=== PATIENT | male | born 1960 | race Caucasian/White ===

== ENCOUNTER 2019-12-18 20:00 | Outpatient (CLI) | payer OTHER, SELFPAY | END 2019-12-18 20:01 | disposition home or self-care (01) | LOC: SLEEP 12-19 12:06 | PROVIDERS: Family Provider Family Medicine; PCP Family Medicine; Visit Provider Family Medicine | DX: G47.30 Sleep apnea, unspecified (principal) | CPT/HCPCS: 95810; 95811 ==

== ENCOUNTER 2020-02-07 20:00 | Outpatient (CLI) | payer OTHER, SELFPAY | END 2020-02-07 20:01 | disposition home or self-care (01) | LOC: SLEEP 02-08 10:08 | PROVIDERS: Family Provider Family Medicine; PCP Family Medicine; Visit Provider Family Medicine | DX: G47.33 Obstructive sleep apnea (adult) (pediatric) (principal) | CPT/HCPCS: 95810; 95811 ==

== ENCOUNTER → 2020-04-15 10:27 | Outpatient (BNVA) | payer OTHER, SELFPAY | PROVIDERS: Family Provider Family Medicine; PCP Family Medicine; Visit Provider Family Medicine | DX: I10 Essential (primary) hypertension (principal); G89.29 Other chronic pain; M54.5 Low back pain; R35.1 Nocturia | CPT/HCPCS: 80053; 80061; 84153; 85025 ==

== ENCOUNTER → 2020-04-16 08:15 | Outpatient (BNVA) | payer OTHER, SELFPAY | PROVIDERS: Family Provider Family Medicine; PCP Family Medicine; Visit Provider Family Medicine | DX: G89.29 Other chronic pain (principal); M54.5 Low back pain; I10 Essential (primary) hypertension | CPT/HCPCS: 80307; 80373; 82044 ==

== ENCOUNTER → 2020-06-03 08:12 | Outpatient (BNVA) | payer OTHER, SELFPAY | PROVIDERS: Family Provider Family Medicine; PCP Family Medicine; Visit Provider Family Medicine | DX: E78.5 Hyperlipidemia, unspecified (principal) | CPT/HCPCS: 80053 ==

== ENCOUNTER → 2020-07-19 09:28 | Outpatient (BNVA) | payer OTHER, SELFPAY | PROVIDERS: Family Provider Family Medicine; PCP Family Medicine; Referring Provider Family Medicine; Visit Provider Anesthesiology Pain Medicine | DX: G89.29 Other chronic pain (principal); M54.42 Lumbago with sciatica, left side; M47.816 Spondylosis without myelopathy or radiculopathy, lumbar region; M54.16 Radiculopathy, lumbar region; M96.1 Postlaminectomy syndrome, not elsewhere classified; Z98.890 Other specified postprocedural states; Z79.891 Long term (current) use of opiate analgesic | CPT/HCPCS: 99204 ==

== ENCOUNTER → 2020-07-24 13:48 | Outpatient (BNVA) | payer OTHER, SELFPAY | PROVIDERS: Family Provider Family Medicine; PCP Family Medicine; Visit Provider Anesthesiology Pain Medicine | DX: G89.29 Other chronic pain (principal); M54.42 Lumbago with sciatica, left side; M54.16 Radiculopathy, lumbar region; M54.9 Dorsalgia, unspecified; Z79.891 Long term (current) use of opiate analgesic | CPT/HCPCS: 64483; 64484; J1040; J3490 ==

== ENCOUNTER → 2020-08-07 12:36 | Outpatient (BNVA) | payer OTHER, SELFPAY | PROVIDERS: Family Provider Family Medicine; PCP Family Medicine; Visit Provider Anesthesiology Pain Medicine | DX: G89.29 Other chronic pain (principal); M51.17 Intervertebral disc disorders with radiculopathy, lumbosacral region; M47.816 Spondylosis without myelopathy or radiculopathy, lumbar region; M54.9 Dorsalgia, unspecified; M96.1 Postlaminectomy syndrome, not elsewhere classified; Z98.890 Other specified postprocedural states | CPT/HCPCS: 64483; 64484; 99212; J1040; J3490 ==

== ENCOUNTER → 2020-08-26 09:52 | Outpatient (BNVA) | payer OTHER, SELFPAY | PROVIDERS: Family Provider Family Medicine; PCP Family Medicine; Visit Provider Anesthesiology Pain Medicine | DX: G89.29 Other chronic pain (principal); M47.816 Spondylosis without myelopathy or radiculopathy, lumbar region; M51.17 Intervertebral disc disorders with radiculopathy, lumbosacral region; M96.1 Postlaminectomy syndrome, not elsewhere classified; Z98.890 Other specified postprocedural states; Z79.891 Long term (current) use of opiate analgesic | CPT/HCPCS: 99213; 99214 ==

== ENCOUNTER → 2020-09-19 11:16 | Outpatient (BNVA) | payer OTHER, SELFPAY | PROVIDERS: Family Provider Family Medicine; PCP Family Medicine; Visit Provider Anesthesiology Pain Medicine | DX: G89.29 Other chronic pain (principal); M51.17 Intervertebral disc disorders with radiculopathy, lumbosacral region; M47.816 Spondylosis without myelopathy or radiculopathy, lumbar region; M96.1 Postlaminectomy syndrome, not elsewhere classified; Z98.890 Other specified postprocedural states; Z79.891 Long term (current) use of opiate analgesic | CPT/HCPCS: 99213 ==

== ENCOUNTER → 2020-11-25 09:06 | Outpatient (BNVA) | payer OTHER, SELFPAY | PROVIDERS: Family Provider Family Medicine; PCP Family Medicine; Visit Provider Anesthesiology Pain Medicine | DX: G89.29 Other chronic pain (principal); M43.12 Spondylolisthesis, cervical region; M51.17 Intervertebral disc disorders with radiculopathy, lumbosacral region; M47.816 Spondylosis without myelopathy or radiculopathy, lumbar region; M96.1 Postlaminectomy syndrome, not elsewhere classified; Z98.890 Other specified postprocedural states | CPT/HCPCS: 99214; 99215 ==

== ENCOUNTER → 2020-12-04 13:07 | Outpatient (BNVA) | payer OTHER, SELFPAY | PROVIDERS: Family Provider Family Medicine; PCP Family Medicine; Visit Provider Anesthesiology Pain Medicine | DX: G89.29 Other chronic pain (principal); M54.12 Radiculopathy, cervical region; Z79.891 Long term (current) use of opiate analgesic | CPT/HCPCS: 62321; J1100 ==

== ENCOUNTER → 2020-12-12 09:56 | Outpatient (BNVA) | payer OTHER, SELFPAY | PROVIDERS: Family Provider Family Medicine; PCP Family Medicine; Visit Provider Anesthesiology Pain Medicine | DX: G89.29 Other chronic pain (principal); M54.42 Lumbago with sciatica, left side; M47.816 Spondylosis without myelopathy or radiculopathy, lumbar region; M54.16 Radiculopathy, lumbar region; M96.1 Postlaminectomy syndrome, not elsewhere classified; M54.12 Radiculopathy, cervical region; Z79.899 Other long term (current) drug therapy; Z98.890 Other specified postprocedural states | CPT/HCPCS: 99214 ==

== ENCOUNTER → 2020-12-26 15:03 | Outpatient (BNVA) | payer OTHER, SELFPAY | PROVIDERS: Family Provider Family Medicine; PCP Family Medicine; Visit Provider Family Medicine | DX: I10 Essential (primary) hypertension (principal); R35.1 Nocturia | CPT/HCPCS: 81015 ==

== ENCOUNTER → 2020-12-30 07:07 | Outpatient (BNVA) | payer OTHER, SELFPAY | PROVIDERS: Family Provider Family Medicine; PCP Family Medicine; Visit Provider Family Medicine | DX: I10 Essential (primary) hypertension (principal); R35.1 Nocturia; R73.09 Other abnormal glucose | CPT/HCPCS: 80053; 80061; 82043; 84153; 85025 ==

== ENCOUNTER → 2020-12-31 12:52 | Outpatient (BNVA) | payer OTHER, SELFPAY | PROVIDERS: Family Provider Family Medicine; PCP Family Medicine; Visit Provider Family Medicine | DX: R73.09 Other abnormal glucose (principal) | CPT/HCPCS: 83036 ==

== ENCOUNTER 2021-01-14 10:14 | Emergency (ER) | payer OTHER, SELFPAY ==
--- NOTE | 2021-01-14 10:45 | W.ED.FALL ---
HPI - Fall General: Chief Complaint: Extremity Injury, Lower Stated Complaint: fell/Lt Leg pain Time Seen by Provider: 01/14/21 10:15 Source: patient Mode of arrival: wheelchair Limitations: no limitations History of Present Illness: HPI Narrative: Patient is a 60-year-old male who presents to ED today for evaluation of a left lower leg injury that he sustained yesterday after slipping and falling on ice. Patient states when he fell his lower leg got twisted underneath him. Patient tells me he has had trouble with ambulation since the fall secondary to pain. He denies any other injury sustained. Denies striking his head, LOC, neck or back pain (apart from his chronic back pain). History of bilateral TKA performed in 2010 and 2011 in [place]. complaint: fall Onset (ago): day(s) (yesterday) Fall from: standing Fall witnessed: yes, by family Place fall occurred: home Loss of consciousness: None Prolonged down time: no Symptoms prior to fall: none Context: tripped/slipped Location of injury - extremities: Left: knee, lower leg and ankle Associated symptoms-after fall: Reports no associated symptoms; Denies chest pain or neck pain Review of Systems Const: Denies: fever(s) Eyes: Denies: change in vision or blurry vision Card: Denies: chest pain Resp: Denies: dyspnea GI: Denies: nausea or vomiting Musc: Reports: back pain (chronic; at baseline currently), extremity pain (L LE) and joint pain (L knee, L ankle); Denies: neck pain or extremity swelling Neuro: Reports: numbness in extremities (chronic L LE numbness following TKA); Denies: lack of coordination, frequent falls or dizziness PFS ED PFSH: Medical History (Updated 01/14/21 @ 12:20 by ESPERANZA Vera) Chronic hoarseness Essential hypertension GERD (gastroesophageal reflux disease) retirement (current) use of opiate analgesic Pain management contract signed Sleep apnea Surgical History H/O total knee replacement History of lumbar laminectomy History of shoulder surgery Family History Other Cancer Social History Smoking and tobacco status: never smoked Alcohol intake: never Caregiver/support person: Yes Lives independently: Yes History of recent travel: No Physical Exam Const: COMMON NORMALS: no acute distress, patient oriented x3, no limitations and alert GENERAL APPEARANCE: cooperative NUTRITIONAL APPEARANCE: obese morbidly obese ORIENTATION/CONSCIOUSNESS: Yes awake, Yes oriented to person, Yes oriented to place and Yes oriented to time HENMT: COMMON NORMALS: normocephalic and atraumatic HEAD & SCALP: normal to inspection, normocephalic and atraumatic Neck/C-Spine: COMMON NORMALS: full ROM CERVICAL SPINE: Yes cervical ROM normal, No pain with cervical ROM, No Cervical spine tenderness and No Paracervical muscle tenderness Resp: COMMON NORMALS: normal respiratory effort Extremity: COMMON NORMALS: capillary refill normal and no calf tenderness GENERAL: Yes normal exam except as noted OTHER: chronic bilateral pitting edema; TTP L lateral knee/lateral tib; no obvious swelling, ecchymosis, or bony deformities noted; DP/PT pulses normal; cap refill normal Neuro: CHADD COMA SCALE: document GCS findings [place] coma scale eye opening: Spontaneous Chadd coma scale verbal response: Orientated Chadd coma scale motor response: Obey commands [place] coma scale total score: 15 COMMON NORMALS: patient oriented x3, moves all extremities, no focal motor deficits and no sensory deficits noted SENSORIUM/ORIENTATION: Yes alert, Yes oriented to person, Yes oriented to place and Yes oriented to time GAIT: Yes Unable to assess gait Skin: COMMON NORMALS: no rashes or lesions noted GENERAL SKIN EXAM: no rashes or lesions noted Course Consultations: Consultation #1: Dr. Harris-recommends crutches/non-weight bearing and he will see in office. Vital Signs: Vital signs: Vital Signs Temperature 99.6 F 01/14/21 10:48 Pulse Rate 79 01/14/21 12:59 Respiratory Rate 17 01/14/21 12:59 Blood Pressure 167/91 01/14/21 12:59 Pulse Oximetry 95 01/14/21 12:59 MDM - Fall MDM Narrative: Medical decision making narrative: Patient was given crutches and he will follow-up with Dr. Harris. Patient states he normally takes Tramadol for his chronic back pain. He states he had a prescription for pickup but was not able to pick it up due to inclement weather and states the prescription is now . He has contacted pain management however, again, due to inclement weather he has not been able to get a hold of them. I will write him for a prescription for 20 tabs so he will have something for pain for his back and his new acute tibial plateau fracture. Recommend he continue to try to call pain management so they are aware. Imaging Data^: XR L ankle: Radiologist's impression: [facility] [address] [place] [address]. [place] [address] XRay Report Signed Patient: Tae Lucas Unit #: [id number] : 1960 Age/Sex: 60 / M ADM Date: 01/14/21 Loc: ER Room/Bed: Attending Dr: Ordering Provider/Ordering MD: Verna Scruggs Date of Service: 01/14/21 Procedure(s): XR ankle LT min 3V* 50139 Accession Number(s): [id number] Report Number: [id number] WS: [id number] LEFT ANKLE: 3 VIEW(S) TECHNIQUE: AP, oblique(s) and lateral. HISTORY: fall/pain COMPARISON: None available. Normal anatomic alignment with no fracture or dislocation. Moderate narrowing of the joint space. No acute fracture. Mild diffuse soft tissue edema. XR/XR ankle LT min 3V* [id number] IMPRESSION: No acute fracture. Dictated By: Sanjuanita Wolfe DO Signed By: Sanjuanita Wolfe DO Signed Date/Time: 01/14/217 DD/ 1117 XR L knee: Radiologist's impression: [facility] [address] [place] [address]. [place] [address] XRay Report Signed with Addenda Patient: Tae Lucas Unit #: [id number] : 1960 Age/Sex: 60 / M ADM Date: 01/14/21 Loc: ER Room/Bed: Attending Dr: Ordering Provider/Ordering MD: Verna Scruggs Date of Service: 01/14/21 Procedure(s): XR knee LT 3V* 45150 Accession Number(s): [id number] Report Number: [id number] ADDENDUM WS: [id number] Addendum LEFT knee radiographs. There is a nondisplaced vertical fracture involving the lateral tibial plateau with extension to the metaphysis. This is also seen on the tibia radiographs. Addendum Dictated By: Sanjuanita Wolfe DO Addendum Signed By: Sanjuanita Wolfe DO Signed Date/Time: 01/14/21 1 120 Addendum Cosigned By: ADDENDUM XR/XR knee LT 3V* [id number] IMPRESSION: Nondisplaced vertical fracture lateral tibial plateau. Addendum Dictated By: Sanjuanita Wolfe DO Addendum Signed By: Sanjuanita Wolfe DO Signed Date/Time: 01/14/21 1 124 Addendum Cosigned By: WS: [id number] LEFT KNEE: 3 VIEW(S) TECHNIQUE: AP, oblique(s) and lateral. HISTORY: fall/pain COMPARISON: None available. No fracture or dislocation. Status post total knee arthroplasty. There is a lucent area measuring 2.5 x 1.2 cm the knee just deep to the medial tibial plateau prosthesis. Marked hypertrophic bone formation along the lateral joint line. Moderate-sized suprapatellar joint effusion. XR/XR knee LT 3V* [id number] IMPRESSION: 1. No fracture identified. 2. Prior total knee arthroplasty. No prior studies to evaluate for comparison or stability. There may be an area of loosening along the medial tibial compartment. 3. Large suprapatellar joint effusion. Dictated By: Sanjuanita Wolfe DO Signed By: Sanjuanita Wolfe DO Signed Date/Time: 01/14/21 1117 DD/ 1115 XR L tib/fib: Radiologist's impression: [facility] [address] [facility] [place] [address] XRay Report Signed Patient: Tae Lucas Unit #: [id number] : 1960 Age/Sex: 60 / M ADM Date: 01/14/21 Loc: ER Room/Bed: Attending Dr: Ordering Provider/Ordering MD: Verna Scruggs Date of Service: 01/14/21 Procedure(s): XR tibia fibula LT 2V 29229 Accession Number(s): [id number] Report Number: [id number] WS: [id number] LEFT TIBIA-FIBULA 2 VIEWS HISTORY: fall/pain COMPARISON: None available. No acute fracture. Degenerative changes and hypertrophic bone formation at the knee. LEFT knee arthroplasty. Soft tissue edema surrounding the tibia and fibula and at the knee. Note: I will review the knee radiograph and due to an addendum. XR/XR tibia fibula LT 2V 95809 IMPRESSION: Soft tissue edema. Suspicious for fracture involving the lateral tibial plateau. Dictated By: Sanjuanita Wolef DO Signed By: Sanjuanita Wolfe DO Signed Date/Time: 01/14/21 111 DD/ 1118 Discharge Plan Discharge Patient Disposition: Home Clinical Impression: Closed fracture of lateral portion of left tibial plateau Qualifiers: Encounter type: initial encounter Qualified Code(s): S82.122A - Displaced fracture of lateral condyle of left tibia, initial encounter for closed fracture Condition: Stable Prescriptions: New tramadol 100 mg tablet 100 mg PO Q8H PRN (Reason: pain) Qty: 20 RF: 0 No Action amlodipine 10 mg tablet 10 mg PO DAILY Qty: 90 RF: 1 carvedilol 6.25 mg tablet 6.25 mg PO BID Qty: 180 RF: 1 tramadol 50 mg tablet 100 mg PO BID PRN (Reason: pain) 30 Days Qty: 120 RF: 3 gabapentin 600 mg tablet 600 mg PO TID Qty: 90 RF: 0 (DME) AVAPS-AE Qty: 1 RF: 0 hydrochlorothiazide 50 mg tablet 50 mg PO DAILY RF: 0 losartan 100 mg tablet 100 mg PO DAILY RF: 0 Discharge Orders: Discharge ED (Routine); Ordered 01/14/21 Ordered By: Verna Scruggs Referrals: Randee Stoner DO [Primary Care Provider] - Rogelio Harris MD [Physician] - Patient Instructions: Opioid Safety Activity Restrictions/Additional Instructions: [facility] is committed to fighting the nationwide opiate epidemic. We are providing ALL patients with information regarding opiate safety. If you received opiate pain medication during your stay or if you received a prescription for opiate pain medication-please review this handout. If not, you may disregard. Thank you. No weightbearing until told otherwise by Dr. Harris. Case management should contact you shortly to set you up with this appointment. Please contact your pain management provider as soon as possible-please inform them that you were given a prescription for Tramadol from the emergency department. Coding Level of Care Code ED Ore Dryer for Chg Fwd Exam Detailed
[2021-01-14 10:48] VITALS: BP 113/94; PULSE 79; RESP 16; TEMP 37.6; O2SAT 98; BMI 47.5
--- NOTE | 2021-01-14 10:49 | XR_ITS ---
WS: [id number] LEFT KNEE: 3 VIEW(S) TECHNIQUE: AP, oblique(s) and lateral. HISTORY: fall/pain COMPARISON: None available. No fracture or dislocation. Status post total knee arthroplasty. There is a lucent area measuring 2.5 x 1.2 cm the knee just deep to the medial tibial plateau prosthesis. Marked hypertrophic bone formation along the lateral joint line. Moderate-sized suprapatellar joint effusion. XR/XR knee LT 3V* [id number] IMPRESSION: 1. No fracture identified. 2. Prior total knee arthroplasty. No prior studies to evaluate for comparison or stability. There may be an area of loosening along the medial tibial compart ment. 3. Large suprapatellar joint effusion.
--- NOTE | 2021-01-14 10:49 | XR_ITS ---
WS: [id number] LEFT ANKLE: 3 VIEW(S) TECHNIQUE: AP, oblique(s) and lateral. HISTORY: fall/pain COMPARISON: None available. Normal anatomic alignment with no fracture or dislocation. Moderate narrowing of the joint space. No acute fracture. Mild diffuse soft tissue edema. XR/XR ankle LT min 3V* [id number] IMPRESSION: No acute fracture.
--- NOTE | 2021-01-14 10:49 | XR_ITS ---
WS: [id number] LEFT TIBIA-FIBULA 2 VIEWS HISTORY: fall/pain COMPARISON: None available. No acute fracture. Degenerative changes and hypertrophic bone formation at the knee. LEFT knee arthroplasty. Soft tissue edema surrounding the tibia and fibula and at the knee. Note: I will review the knee radiograph and due to an addendum. XR/XR tibia fibula LT 2V 85411 IMPRESSION: Soft tissue edema. Suspicious for fracture involving the lateral tibial plateau .
[2021-01-14 10:51] VITALS: BP 113/94; PULSE 79; RESP 18; O2SAT 94
[2021-01-14 12:59] VITALS: BP 167/91; PULSE 79; RESP 17; O2SAT 95
--- NOTE | 2021-01-15 09:23 | DCPLANNER ---
manager of software received message to schedule follow up appointment with Dr. Harris. manager of software called and spoke to Rakel, who took patient's information and stated she will be calling patient to see if patient can come in to see Dr. Harris today.
--- NOTE | 2021-01-15 14:10 | DCPLANNER ---
Patient has a follow up appointment scheduled for Thursday, January 21, 2021 at 9:[address] Harris at [facility]. Clinic will call patient with appointment information.
--- NOTE | 2021-02-03 07:56 | DCPLANNER ---
Patient had a follow up appointment scheduled for 01.21.[address] Harris at [facility] - patient did attend appointment.
== END 2021-01-14 13:00 | disposition home or self-care (01) ==
PROVIDERS: Emergency Provider Physician Assistant; PCP Family Medicine
DX: S82.122A Displaced fracture of lateral condyle of left tibia, initial encounter for closed fracture (principal); I10 Essential (primary) hypertension; W00.0XXA Fall on same level due to ice and snow, initial encounter
CPT/HCPCS: 29530; 73562; 73590; 73610; 99283; E0114

== ENCOUNTER → 2021-01-21 10:03 | Outpatient (BNVA) | payer OTHER, SELFPAY | PROVIDERS: PCP Family Medicine; Visit Provider Anesthesiology Pain Medicine | DX: G89.29 Other chronic pain (principal); M51.17 Intervertebral disc disorders with radiculopathy, lumbosacral region; M96.1 Postlaminectomy syndrome, not elsewhere classified; M47.816 Spondylosis without myelopathy or radiculopathy, lumbar region; Z79.899 Other long term (current) drug therapy; Z98.890 Other specified postprocedural states; Z79.891 Long term (current) use of opiate analgesic | CPT/HCPCS: 99214 ==

== ENCOUNTER → 2021-02-06 08:47 | Outpatient (BNVA) | payer OTHER, SELFPAY | PROVIDERS: PCP Family Medicine; Visit Provider Anesthesiology Pain Medicine | DX: G89.29 Other chronic pain (principal); M96.1 Postlaminectomy syndrome, not elsewhere classified; M54.42 Lumbago with sciatica, left side; M47.816 Spondylosis without myelopathy or radiculopathy, lumbar region; M54.16 Radiculopathy, lumbar region; M54.12 Radiculopathy, cervical region; S82.142A Displaced bicondylar fracture of left tibia, initial encounter for closed fracture; X58.XXXA Exposure to other specified factors, initial encounter; Z79.899 Other long term (current) drug therapy; Z98.890 Other specified postprocedural states; Z79.891 Long term (current) use of opiate analgesic | CPT/HCPCS: 99214 ==

== ENCOUNTER 2021-02-25 11:58 | Outpatient (CLI) | payer OTHER, SELFPAY ==
--- NOTE | 2021-02-25 12:58 | ECG_ITS ---
[facility] Test Date: 2021-02-25 Pat Name: Tae Lucas Department: Room: Gender: Male Heel Breaster: : 1960 Requested By: Reggie Goddard Order Number: [id number] Joaquín MD: NEHEMIAH CHANDLER Measurements Intervals [place]in Rate: 65 P: 38 VA: 233 QRS: 4 QRSD: 110 T: 38 QT: 403 QTc: 419 Interpretive Statements SINUS RHYTHM WITH FIRST DEGREE AV BLOCK Compared to ECG 06/23/2019 16:40:30 First degree AV block now present Intraventricular conduction delay no longer present Electronically Signed On 02-25-2021 20:18:31 CDT by NEHEMIAH CHANDLER [id number]
[2021-02-25 13:18] LABS: Basophils # 0.1 10^3/uL (0.0-0.1); Basophils % 0.8 %; Eosinophils # 0.6 10^3/uL (0.0-0.8); Eosinophils % 6.7 %; Hematocrit 43.6 % (42.0-52.0); Hemoglobin 13.9 g/dL (11.7-16.6); Lymphocytes # 3.9 10^3/uL (0.8-4.8); Mean Corpuscular HGB Conc 31.9 g/dL (30.0-36.0); Mean Corpuscular Hemoglobin 27.9 pg (28.0-34.0); Mean Corpuscular Volume 87.6 fL (80-94); Mean Platelet Volume 9.6 fL (7.4-10.4); Monocytes # 0.7 10^3/uL (0.2-0.9); Monocytes % 8.2 %; Neutrophils # 3.11 10^3/uL (1.8-7.7); Neutrophils % 37.1 %; Nucleated Red Blood Cells % 0 %; Platelet Count 292 10^3/cmm (130-400); Red Blood Count 4.98 10^6/uL (4.1-5.3); Red Cell Distribution Width 14.1 % (12.1-15.1); White Blood Count 8.4 10^3/uL (4.0-10.0)
[2021-02-25 13:32] LABS: Anion Gap 13.8 (5-19); Blood Urea Nitrogen 9 mg/dL (8-23); Calcium 9.4 mg/dL (8.5-10.5); Carbon Dioxide 27 mmol/L (22-29); Chloride 99 mmol/L (98-107); Glucose 96 mg/dL (65-115); Osmolality Calculated 281 mOsm/kg (285-295); Potassium 3.8 mmol/L (3.5-5.1); Sodium 136 mmol/L (136-145)
== END 2021-02-25 11:59 | disposition home or self-care (01) ==
PROVIDERS: PCP Family Medicine; Visit Provider Specialist
DX: K21.9 Gastro-esophageal reflux disease without esophagitis (principal); R49.0 Dysphonia
CPT/HCPCS: 80048; 85025; 93005

== ENCOUNTER → 2021-03-19 08:23 | Outpatient (BNVA) | payer OTHER, SELFPAY | PROVIDERS: PCP Family Medicine; Visit Provider Anesthesiology Pain Medicine | DX: G89.29 Other chronic pain (principal); M51.17 Intervertebral disc disorders with radiculopathy, lumbosacral region; M54.2 Cervicalgia; M96.1 Postlaminectomy syndrome, not elsewhere classified; M47.816 Spondylosis without myelopathy or radiculopathy, lumbar region; S82.142A Displaced bicondylar fracture of left tibia, initial encounter for closed fracture; X58.XXXA Exposure to other specified factors, initial encounter; Z98.890 Other specified postprocedural states; Z79.891 Long term (current) use of opiate analgesic | CPT/HCPCS: 99214 ==

== ENCOUNTER → 2021-04-07 11:49 | Outpatient (BNVA) | payer OTHER, SELFPAY | PROVIDERS: PCP Family Medicine; Visit Provider Anesthesiology Pain Medicine | DX: G89.29 Other chronic pain (principal); M54.16 Radiculopathy, lumbar region; M47.816 Spondylosis without myelopathy or radiculopathy, lumbar region; M54.42 Lumbago with sciatica, left side; Z79.891 Long term (current) use of opiate analgesic | CPT/HCPCS: 64483; 64484; J1100; J3490 ==

== ENCOUNTER → 2021-05-01 09:34 | Outpatient (BNVA) | payer OTHER, SELFPAY | PROVIDERS: PCP Family Medicine Adult Medicine; Visit Provider Anesthesiology Pain Medicine | DX: G89.29 Other chronic pain (principal); M54.42 Lumbago with sciatica, left side; M54.16 Radiculopathy, lumbar region; M54.12 Radiculopathy, cervical region; M96.1 Postlaminectomy syndrome, not elsewhere classified; M79.605 Pain in left leg; Z79.891 Long term (current) use of opiate analgesic | CPT/HCPCS: 99214 ==

== ENCOUNTER → 2021-05-28 13:16 | Outpatient (BNVA) | payer OTHER, SELFPAY | PROVIDERS: PCP Family Medicine Adult Medicine; Visit Provider Anesthesiology Pain Medicine | DX: G89.29 Other chronic pain (principal); M54.16 Radiculopathy, lumbar region; M54.12 Radiculopathy, cervical region; M54.42 Lumbago with sciatica, left side; M96.1 Postlaminectomy syndrome, not elsewhere classified | CPT/HCPCS: 62323; J1040; J3490 ==

== ENCOUNTER → 2021-05-30 08:56 | Outpatient (BNVA) | payer OTHER, SELFPAY | PROVIDERS: PCP Family Medicine Adult Medicine; Visit Provider Anesthesiology Pain Medicine | DX: G89.29 Other chronic pain (principal); M54.42 Lumbago with sciatica, left side; M96.1 Postlaminectomy syndrome, not elsewhere classified; M54.16 Radiculopathy, lumbar region; M47.816 Spondylosis without myelopathy or radiculopathy, lumbar region; M54.12 Radiculopathy, cervical region; S82.142A Displaced bicondylar fracture of left tibia, initial encounter for closed fracture; X58.XXXA Exposure to other specified factors, initial encounter; Z79.891 Long term (current) use of opiate analgesic | CPT/HCPCS: 99214 ==

== ENCOUNTER → 2021-06-19 10:24 | Outpatient (BNVA) | payer OTHER, SELFPAY | PROVIDERS: PCP Family Medicine Adult Medicine; Visit Provider Anesthesiology Pain Medicine | DX: G89.29 Other chronic pain (principal); M54.42 Lumbago with sciatica, left side; M54.16 Radiculopathy, lumbar region; M96.1 Postlaminectomy syndrome, not elsewhere classified; M54.12 Radiculopathy, cervical region; S82.142A Displaced bicondylar fracture of left tibia, initial encounter for closed fracture; X58.XXXA Exposure to other specified factors, initial encounter; Z79.891 Long term (current) use of opiate analgesic | CPT/HCPCS: 99214 ==

== ENCOUNTER → 2021-08-07 09:33 | Outpatient (BNVA) | payer OTHER, SELFPAY | PROVIDERS: PCP Family Medicine Adult Medicine; Visit Provider Anesthesiology Pain Medicine | DX: G89.29 Other chronic pain (principal); M54.42 Lumbago with sciatica, left side; M54.16 Radiculopathy, lumbar region; M54.12 Radiculopathy, cervical region; S82.142A Displaced bicondylar fracture of left tibia, initial encounter for closed fracture; X58.XXXA Exposure to other specified factors, initial encounter; M96.1 Postlaminectomy syndrome, not elsewhere classified; M79.605 Pain in left leg; Z79.891 Long term (current) use of opiate analgesic | CPT/HCPCS: 99214 ==

== ENCOUNTER → 2021-08-08 08:45 | Outpatient (BNVA) | payer OTHER, SELFPAY | PROVIDERS: PCP Family Medicine Adult Medicine; Visit Provider Family Medicine Adult Medicine | DX: E66.01 Morbid (severe) obesity due to excess calories (principal); Z68.42 Body mass index [BMI] 45.0-49.9, adult; F41.8 Other specified anxiety disorders; I10 Essential (primary) hypertension; R73.03 Prediabetes; Z13.6 Encounter for screening for cardiovascular disorders | CPT/HCPCS: 80053; 83036; 84443; 85025 ==

== ENCOUNTER → 2021-09-04 09:41 | Outpatient (BNVA) | payer OTHER, SELFPAY | PROVIDERS: PCP Family Medicine Adult Medicine; Visit Provider Anesthesiology Pain Medicine | DX: G89.29 Other chronic pain (principal); M54.42 Lumbago with sciatica, left side; M54.16 Radiculopathy, lumbar region; M54.12 Radiculopathy, cervical region; S82.142A Displaced bicondylar fracture of left tibia, initial encounter for closed fracture; M96.1 Postlaminectomy syndrome, not elsewhere classified; Z79.899 Other long term (current) drug therapy; X58.XXXA Exposure to other specified factors, initial encounter; I10 Essential (primary) hypertension; M79.605 Pain in left leg; E66.01 Morbid (severe) obesity due to excess calories; Z68.42 Body mass index [BMI] 45.0-49.9, adult; Z79.891 Long term (current) use of opiate analgesic; Z77.22 Contact with and (suspected) exposure to environmental tobacco smoke (acute) (chronic) | CPT/HCPCS: 99214 ==

== ENCOUNTER → 2021-10-02 09:37 | Outpatient (BNVA) | payer OTHER, SELFPAY | PROVIDERS: PCP Family Medicine Adult Medicine; Visit Provider Anesthesiology Pain Medicine | DX: G89.29 Other chronic pain (principal); M54.16 Radiculopathy, lumbar region; M96.1 Postlaminectomy syndrome, not elsewhere classified; M54.42 Lumbago with sciatica, left side; M54.2 Cervicalgia; M54.12 Radiculopathy, cervical region; M79.605 Pain in left leg; S82.142A Displaced bicondylar fracture of left tibia, initial encounter for closed fracture; Z79.891 Long term (current) use of opiate analgesic; X58.XXXA Exposure to other specified factors, initial encounter | CPT/HCPCS: 99214 ==

== ENCOUNTER 2021-10-15 09:58 | Outpatient (CLI) | payer OTHER, SELFPAY ==
--- NOTE | 2021-10-15 10:08 | XR_ITS ---
WS: [id number] Exam: XR shoulder LT min 2V* [id number] Date/Time of Exam: 10/15/2021 10:12 AM Reason For Exam: JOINT PAIN/LIMITED ROM No fracture or dislocation noted. There is moderate DJD at the glenohumeral joint. There is arthrosis and spurring at the AC joint. Prominent subacromial spur noted. There is spurring along the medial m argin of the humeral head. Normal soft tissues. XR/XR shoulder LT min 2V* [id number] IMPRESSION: 1. Moderate degenerative changes of the shoulder. No fracture or dislocation.
--- NOTE | 2021-10-15 10:08 | XR_ITS ---
WS: [id number] Exam: XR lumbar spine 2-3V* [id number] Date/Time of Exam: 10/15/2021 10:12 AM Reason For Exam: JOINT PAIN/LIMITED ROM No acute fracture or dislocation. There is interbody fusion at C4-5 with pedicle screws and posterior rods. A disc implant is noted at L4-5. Large anterior osteophytes are noted at all levels. Prominent posterior osteophyte projects from the lower endplate of L3 and might cause some spinal canal stenos is. Facet arthropathy at all levels. Levoscoliosis. Degenerative vacuum disc at L5-S1. Degenerative n arrowing of the remaining lumbar discs. DJD of the bilateral SI joints. XR/XR lumbar spine 2-3V* [id number] IMPRESSION: 1. No acute fracture or malalignment. 2. Advanced facet arthropathy and degenerative disc changes. 3. Stable-appearing interbody fusion at L4-5. 4. Levoscoliosis. Marked spondylosis. 5. Prominent posterior osteophyte projects from the lower endplate of L3 and mi ght cause some spinal canal stenosis.
--- NOTE | 2021-10-15 10:08 | XR_ITS ---
WS: [id number] Exam: XR cervical spine 3V* [id number] Date/Time of Exam: 10/15/2021 10:12 AM Reason For Exam: JOINT PAIN/LIMITED ROM No fracture or dislocation involving the upper 6 cervical vertebra. C7 is not completely visualized o n the lateral view. There are very large anterior bridging osteophytes from C4 to C6. Facet DJD at al l levels. The odontoid is intact. Vascular calcifications in the left neck. XR/XR cervical spine 3V* [id number] IMPRESSION: 1. No fracture or malalignment noted. 2. Incomplete visualization of C7 on the lateral view. 3. Facet DJD and spondylosis. There are large anterior bridging osteophytes not ed from C4 to C 6. This causes some anterior displacement of the airway.
== END 2021-10-15 09:59 | disposition home or self-care (01) ==
PROVIDERS: PCP Family Medicine Adult Medicine; Visit Provider Dermatology
DX: Z02.71 Encounter for disability determination (principal); M25.50 Pain in unspecified joint; M47.816 Spondylosis without myelopathy or radiculopathy, lumbar region; M41.86 Other forms of scoliosis, lumbar region; M25.78 Osteophyte, vertebrae; M47.812 Spondylosis without myelopathy or radiculopathy, cervical region
CPT/HCPCS: 72040; 72100; 73030

== ENCOUNTER → 2021-11-14 07:30 | Outpatient (BNVA) | payer OTHER, SELFPAY | PROVIDERS: PCP Family Medicine Adult Medicine; Visit Provider Family Medicine Adult Medicine | DX: E11.69 Type 2 diabetes mellitus with other specified complication (principal); E66.9 Obesity, unspecified; E66.01 Morbid (severe) obesity due to excess calories; Z68.42 Body mass index [BMI] 45.0-49.9, adult; I10 Essential (primary) hypertension | CPT/HCPCS: 80053; 80061; 83036 ==

== ENCOUNTER → 2022-03-03 07:40 | Outpatient (BNVA) | payer OTHER, SELFPAY | PROVIDERS: PCP Family Medicine Adult Medicine; Visit Provider Family Medicine Adult Medicine | DX: E11.69 Type 2 diabetes mellitus with other specified complication (principal); E66.9 Obesity, unspecified; I10 Essential (primary) hypertension | CPT/HCPCS: 80053; 80061; 83036 ==

== ENCOUNTER → 2022-09-02 07:55 | Outpatient (BNVA) | payer OTHER, SELFPAY | PROVIDERS: PCP Family Medicine Adult Medicine; Visit Provider Family Medicine Adult Medicine | DX: C44.310 Basal cell carcinoma of skin of unspecified parts of face (principal); E11.69 Type 2 diabetes mellitus with other specified complication; E66.9 Obesity, unspecified; I10 Essential (primary) hypertension; F41.8 Other specified anxiety disorders; E66.01 Morbid (severe) obesity due to excess calories; Z68.42 Body mass index [BMI] 45.0-49.9, adult | CPT/HCPCS: 80053; 83036; 84443 ==

== ENCOUNTER → 2023-02-10 08:33 | Outpatient (BNVA) | payer OTHER, SELFPAY | PROVIDERS: PCP Family Medicine Adult Medicine; Visit Provider Family Medicine Adult Medicine | DX: E11.69 Type 2 diabetes mellitus with other specified complication (principal); E66.9 Obesity, unspecified; I10 Essential (primary) hypertension | CPT/HCPCS: 80053; 83036; 85025 ==

== ENCOUNTER → 2023-04-22 09:31 | Outpatient (BNVA) | payer OTHER, SELFPAY | PROVIDERS: PCP Family Medicine Adult Medicine; Visit Provider Anesthesiology Pain Medicine | DX: M15.9 Polyosteoarthritis, unspecified (principal) | CPT/HCPCS: 73130 ==

== ENCOUNTER 2023-06-17 06:00 | Outpatient (CLI) | payer MEDICARE, SELFPAY | END 2023-06-17 06:01 | disposition home or self-care (01) | PROVIDERS: PCP Family Medicine Adult Medicine; Visit Provider Student in an Organized Health Care Education/Training Program | DX: Z46.89 Encounter for fitting and adjustment of other specified devices (principal); G56.03 Carpal tunnel syndrome, bilateral upper limbs; M19.042 Primary osteoarthritis, left hand; M19.041 Primary osteoarthritis, right hand; G89.29 Other chronic pain; M96.1 Postlaminectomy syndrome, not elsewhere classified; M54.42 Lumbago with sciatica, left side; M54.16 Radiculopathy, lumbar region; M54.12 Radiculopathy, cervical region; S82.142A Displaced bicondylar fracture of left tibia, initial encounter for closed fracture; X58.XXXA Exposure to other specified factors, initial encounter; Z79.899 Other long term (current) drug therapy | CPT/HCPCS: 97760; 99204; 99214; L3809; L3908 ==

== ENCOUNTER → 2023-06-17 07:19 | Outpatient (BNVA) | payer MEDICARE, SELFPAY | PROVIDERS: PCP Family Medicine Adult Medicine; Referring Provider Anesthesiology Pain Medicine; Visit Provider Student in an Organized Health Care Education/Training Program | DX: M19.042 Primary osteoarthritis, left hand (principal); M19.041 Primary osteoarthritis, right hand; G56.03 Carpal tunnel syndrome, bilateral upper limbs | CPT/HCPCS: 20600; J3301; J3490 ==

== ENCOUNTER → 2023-07-19 08:53 | Outpatient (BNVA) | payer MEDICARE, SELFPAY | PROVIDERS: PCP Family Medicine Adult Medicine; Visit Provider Anesthesiology Pain Medicine | DX: M96.1 Postlaminectomy syndrome, not elsewhere classified (principal); M54.42 Lumbago with sciatica, left side; G89.29 Other chronic pain; M54.16 Radiculopathy, lumbar region; M54.12 Radiculopathy, cervical region; Z79.899 Other long term (current) drug therapy; S82.142A Displaced bicondylar fracture of left tibia, initial encounter for closed fracture; X58.XXXA Exposure to other specified factors, initial encounter | CPT/HCPCS: 99214 ==

== ENCOUNTER → 2023-08-11 08:41 | Outpatient (BNVA) | payer MEDICARE, SELFPAY | PROVIDERS: PCP Family Medicine Adult Medicine; Visit Provider Family Medicine Adult Medicine | DX: E11.69 Type 2 diabetes mellitus with other specified complication (principal); E66.9 Obesity, unspecified; I10 Essential (primary) hypertension; E66.01 Morbid (severe) obesity due to excess calories; Z68.42 Body mass index [BMI] 45.0-49.9, adult | CPT/HCPCS: 80061; 83036 ==

== ENCOUNTER → 2023-09-07 08:09 | Outpatient (BNVA) | payer MEDICARE, SELFPAY | PROVIDERS: PCP Family Medicine Adult Medicine; Visit Provider Student in an Organized Health Care Education/Training Program | DX: M18.12 Unilateral primary osteoarthritis of first carpometacarpal joint, left hand (principal); G56.02 Carpal tunnel syndrome, left upper limb | CPT/HCPCS: 99214 ==

== ENCOUNTER 2023-09-30 07:07 | Day surgery (SDC) | payer MEDICARE, SELFPAY ==
[2023-09-30] VITALS (12 sets, daily range): BP systolic 136–171; BP diastolic 69–100; PULSE 78–87; RESP 14–91; TEMP 36.2–36.8; O2SAT 90–98; BMI 46.8
--- NOTE | 2023-09-30 | XR_ITS ---
WS: [id number] C-ARM RADIOGRAPHS LEFT FIRST FINGER; 2 IMAGES HISTORY: YAZAN PICS COMPARISON: None available. Intraoperative imaging during surgical procedure. Trapezium is absent. Degenerative changes at the ba se of the first finger. IMPRESSION: Intraoperative imaging during removal of the trapezium.
[2023-09-30 08:01] LABS: Glucose Point of Care 109 mg/dL (70-110)
[2023-09-30] MEDS: sodium chloride 0.9% 1,000 ML 30 ML IV (08:07)
[2023-09-30] MEDS: acetaminophen 1,000 MG/100 ML PIGGYBACK 400 MG IV (08:07)
[2023-09-30] MEDS: ketorolac 30 mg/mL INJ IVP (08:22)
--- NOTE | 2023-09-30 08:54 | P.ANESASSM_ITS ---
Pre-Anesthetic Assessment Height/Weight: Height 1.85 m Weight 161.025 kg Temp Pulse Resp BP Pulse Ox O2 Del Method 97.3 F L 78 18 150/83 92 Room Air 09/30/23 07:28 09/30/23 07:28 09/30/23 07:28 09/30/23 07:28 09/30/23 07:28 09/30/23 07:31 Preop Diagnosis: Left Carpal Tunnel syndrome, left thumb basal joint arthritis Operation Date: 09/30/23 08:55 Proposed Procedures p Carpal Tunnel Release(Left) - Truong Osei DO s Finger Joint Arthroplasty Thumb Basal Joint Arthroplasty(Left) - Truong Osei DO Familial anesthetic complications: None Was Beta Esther taken within 24 hours: N/A Was Clonidine taken within 24 hours: N/A Last intake: Intake Last Liquid Date 09/29/23 Last Liquid Time 19:00 Last Solid Date 09/29/23 Last Solid Time 18:00 Social No alcohol and No tobacco Exam alert, oriented x 3, clear to auscultation bilaterally and regular rate & rhythm Airway Mallampati: Class IV Dentition: other (missing) Pulmonary Sleep Apnea CV/HEM Hypertension GI Gastroesophageal Reflux Disease Metabolic Morbid Obesity Anesthetic Plan ASA status: 3 Anesthesia: General Other: Carpal Tunnel + thumb arthoplasty Risk of > 500 ml blood loss (7ml/kg in children): No Medications/Allergies Home Medications Medication Instructions Recorded Confirmed Last Taken Type AVAPS-AE #1 ea 07/31/21 09/14/23 Unknown Rx diclofenac sodium 1 % topical gel 4 g topical QID #100 grams 02/10/23 09/29/23 09/29/23 Rx (Arthritis Pain (diclofenac)) losartan 100 mg tablet 100 mg PO DAILY #90 tabs 04/07/23 09/29/23 09/29/23 Rx carvedilol 6.25 mg tablet See Rx Instructions .Route 04/14/23 09/29/23 09/30/23 Rx .COMPLEX #180 tabs pantoprazole 40 mg tablet,delayed See Rx Instructions .Route 06/02/23 09/29/23 09/29/23 Rx release .COMPLEX #90 tabs amlodipine 10 mg tablet 10 mg PO DAILY #90 tabs 06/10/23 09/29/23 09/30/23 Rx hydrochlorothiazide 50 mg tablet 50 mg PO QAM 90 days #90 tabs 06/10/23 09/29/23 09/29/23 Rx COCK UP SPLINT #2 ea 06/17/23 09/14/23 Unknown Rx lidocaine 5 % topical patch 3 patch topical DAILY #30 ea 08/12/23 09/29/23 09/29/23 Rx oxycodone-acetaminophen 10 mg-325 1 tab PO BID PRN pain 30 days #60 09/14/23 09/29/23 09/30/23 Rx mg tablet tabs liraglutide 0.6 mg/0.1 mL (18 mg/3 1.8 mg (0.3 mL) SUBCUT DAILY 09/23/23 09/29/23 09/29/23 Rx mL) subcutaneous pen injector diabetes #9 mL hydrocodone 5 mg-acetaminophen 325 1 tab PO Q6H PRN pain 5 days #20 09/30/23 Unknown Rx mg tablet tabs ondansetron 4 mg disintegrating 4 mg PO Q8H PRN nausea and 09/30/23 Unknown Rx tablet vomiting 3 days #9 tabs Allergies Allergy/AdvReac Type Severity Reaction Status Date / Time No Known Allergies Allergy Verified 09/29/23 11:21 Current Medications Generic Name Dose Route Start Last Admin Trade Name Freq PRN Reason Stop Dose Admin Sodium Chloride 1,000 mls @ 30 mls/hr 09/30/23 07:30 09/30/23 08:07 Sodium Chloride 0.9% IV 10/01/23 07:29 30 mls/hr .Q24H VENUS Administration PFSH Anesthesia Medical History Anxiety about health Chronic hoarseness Diabetes mellitus type 2 in obese Essential hypertension Facet arthropathy, lumbar GERD (gastroesophageal reflux disease) 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 Sommers HAYDE on CPAP Osteoarthritis involving multiple joints on both sides of body Pain management contract signed Painful total knee replacement, left Tibial plateau fracture, left Surgical History H/O total knee replacement History of laminectomy History of lumbar laminectomy History of shoulder surgery Family History Father Cancer lymphoma Grandfather Cancer Lung--maternal and paternal Mother Dementia Family/Other Diabetes Maternal Aunt Grandmother Stroke Maternal Denies family history of CAD (coronary artery disease) Clotting disorder Hyperlipidemia Chronic kidney disease (CKD) Anesthesia complication Bleeding disorder Lung disease Hypertension Social History Smoking and tobacco/nicotine status: never used tobacco/nicotine Second hand smoke exposure: Yes Alcohol intake: current Alcohol intake frequency: holidays/special occasions only Substance/Drug Use: never Caregiver/support person: Yes Lives independently: Yes Marital status: Current occupational status: unemployed, retired and disabled Current gender identity: Male Special josefina needs: No Data Anesthesia Cardiac Studies: No Data to Display
[2023-09-30] MEDS: midazolam 1 mg/mL INJ 2 mL 2 MG IVP (09:01)
--- NOTE | 2023-09-30 09:08 | SUR.PREOP ---
PT MONITORED WITH PULSE OXIMETER. PLACED ON O2 AT 4L/M.
--- NOTE | 2023-09-30 09:40 | W.PM.OPSUD ---
Surgery/Procedure H&P Update DATE OF PROCEDURE: September 30, 2023 DATE H&P PERFORMED: 09/07/23 H&P UPDATE INFORMATION: I have reviewed H&P completed within last 30 days, I have examined patient prior to procedure and No changes to prior documentation PREOP DIAGNOSIS: Left Carpal Tunnel syndrome, left thumb basal joint arthritis PRIMARY INDICATION FOR PROCEDURE: Left carpal tunnel syndrome, left thumb basal joint arthritis PLANNED PROCEDURE: Operation Date: 09/30/23 08:55 Proposed Procedures p Carpal Tunnel Release(Left) - Truong Osei DO s Finger Joint Arthroplasty Thumb Basal Joint Arthroplasty(Left) - Truong Osei DO
[2023-09-30] MEDS: ceFAZolin 2,000 MG in sodium chloride 0.9% (plus) 50 ML 100 MG IV (10:15)
[2023-09-30] MEDS: ROPivacaine 0.5% SDV 30 mL 25 MG INJECTION (10:51)
[2023-09-30] MEDS: lidocaine-epi 2% 20 mL INJ 5 ML INJECTION (10:51)
--- NOTE | 2023-09-30 12:51 | W.PM.BPON ---
Date of Procedure: 09/30/2023 Surgeon: Truong Osei DO Heat Pump Installer(s): MITCHELL Patricia Procedure(s) performed: Left thumb basal joint arthroplasty Left thumb APL slip tendon transfer left carpal tunnel release Findings of the procedure(s): Severe left thumb basal joint arthritis and severe left carpal tunnel syndrome, procedure went as planned with left carpal tunnel release as well as left thumb basal joint arthroplasty with APL tendon slip transfer with no complications Estimated blood loss: 15 cc Specimen(s) removed: Trapezium removed not sent for pathology Post-operative diagnosis: Left thumb basal joint arthritis, left carpal tunnel syndrome
--- NOTE | 2023-09-30 12:55 | PM.OP ---
Operative Report Date of procedure: September 30, 2023 Pre-op diagnosis: Left carpal tunnel syndrome Left thumb basal joint arthritis Post-op diagnosis: Same Surgeon: Truong Osei DO Procedure: Procedure: Procedure done: Left thumb basal joint arthroplasty Left thumb APL slip tendon transfer left carpal tunnel release Implants: Arthrex fiber lock suspension implant kit for basal joint arthroplasty Surgeon: Truong Osei DO Estimated blood loss: 15mL Tourniquet time: 116min Complications: none Condition: stable Disposition: same day Brief History: Patient's been seen and worked up in the outpatient setting.? Findings consistent with a Left thumb basal joint severe arthritis and left carpal tunnel syndrome.? This is failed conservative treatment pt has underwent injections as well as bracing at this point last injection only provided minimal relief and at this point time the only other treatment option surgical intervention of the left thumb basal joint.? Patient's symptomatology of left carpal tunnel and median nerve paresthesias with provocative symptoms on examination for carpal tunnel, and confirmatory nerve conduction study. ? We talked about surgery in detail about the risk benefits complication alternatives to surgical nonsurgical treatment options.? At this point time pt persistent pain is causing significant issues.? pt does understand with the basal joint arthroplasty potential loss of range of motion as well as strength but ultimately this would provide pt with significant pain relief.? Through shared decision making pt elects proceed with surgical intervention of left carpal tunnel release and left thumb basal joint arthroplasty.? Once again pt understands risk benefits complication alternatives to each treatment option understanding risk elects to proceed with surgery. Procedure: Patient seen evaluated in the preoperative holding area.? Consent was signed and reviewed with patient.? Correct extremity marked.? Once cleared by anesthesia patient was taken back to the operative suite.? Underwent anesthesia per the anesthesia department.? Patient was placed in supine position all bony prominences well-padded patient was properly secured to the bed.? Underwent anesthesia for the anesthesia department.? A armboard was placed to the left upper extremity a nonsterile tourniquet applied to the left upper arm.? Once appropriately anesthetized left upper extremity was then prepped and draped in standard orthopedic fashion.? Final timeout performed.? Patient received appropriate preoperative antibiotics. Esmarch was used exsanguinate the left upper extremity and tourniquet was insufflated to 250 mmHg. I then made a standard mini open left carpal tunnel incision directly over the previous incision site.? This was made in line with the fourth ray starting distally at Marcos's cardinal line extending proximally just distal to the wrist crease.? This was made in patient's palmar crease longitudinally.? Sharp scalpel incision was made through skin.? I then placed a self-retaining retractor and spread longitudinally identified the palmar fascia which was then split.? Next my self-retaining retractor was placed deep and I had direct visualization of the transverse carpal ligament.? This was noted to be significantly thickened.? I then utilizing scalpel incised and feathered through the transverse carpal ligament till entered the carpal tunnel.? Once I did this I switched to Littler dissection scissors and completed the carpal tunnel release surgery distally releasing all of the transverse carpal ligament into the palmar fat with care to protect the recurrent branch as well as the superficial palmar arch.? Once the distal release was performed I then switched to have my law office assistant placed retraction above the transverse carpal ligament I then under loupe magnification had direct visualization of the transverse carpal ligament.? I utilized dissection scissors curved ulnarly away from the palmar cutaneous branch and protection of this and released the transverse carpal ligament to its entirely proximally into the median antebrachial fascia then I subsequently switched to a [place] and confirmed adequate complete decompression of the carpal tunnel both proximally and distally.? Satisfied with my release and then inspected the contents the carpal tunnel tendons were healthy.? The nerve was had significant adhesions and scar tissue within the carpal tunnel as a result utilizing dissection scissors I subsequently performed a neurolysis of the median nerve for appropriate decompression of the carpal tunnel as well as neurolysis.? Nerve did appear to be healthy but had been compressed an hourglass shape but overall no masses the nerve appeared to have healthy potential for recovery.? Wound was then thoroughly irrigated.? A wet Ray-Melissa was then placed into the incision and I then proceeded with left thumb basal joint arthroplasty. ? I then utilized a 15 blade in standard longitudinal fashion directly over the left thumb basal joint .? Sharp scalpel incision was made through skin only.? I then switched to Littler dissection scissors and dissected out the dorsal cutaneous branches which were protected throughout this case.? I then identified the APL and EPL tendons.? I then performed a first dorsal compartment release under direct visualization with loupe magnification.? At this point time I then mobilized the tendons with a blunt wheatie self retractor and went through this interval.? Next I was directly onto the CMC joint dorsal capsule.? I then subsequently utilized my dissection scissors to dissect out the radial artery which was then identified and protected by my law office assistant throughout this case with a Kasdan retractor.? Once I identified the radial artery and dorsal branch I then subsequently performed my capsulotomy of the first CMC joint with [place] blade..? I then introduced a [place] into the arthritic space at the first CMC joint.? This was confirmed with mini C arm to be the appropriate bone prior to performing my trapeziectomy.? The trapezium was then shelled out and its entirety with a McClamary elevator with care to protect and not injure any of my remaining carpal bone articular cartilage as well as not to damage the/injure the radial artery as it was protected throughout the case.? This was then removed and identified the FCR within the floor of my incision.? Trapeziectomy was complete and confirmed on mini C arm. At this point time I thoroughly irrigated and removed of all residual bony debris.? A [place] was placed into the STT joint and joint was inspected and this was found to be free of arthritic changes. I then subsequently plan to proceed with utilizing Arthrex fiber lock suspensioplasty kit which was then opened and then subsequently drilled into the second metacarpal base.? Once I confirm my appropriate placement with mini C arm all suture anchor.? Once this was confirmed appropriate placement I then drilled the impacted and deployed the bicortical suture anchor.? This had excellent tension and could lift the arm off of the table with its fixation.? I then subsequently identified the radial aspect of the first metacarpal and at its mid substance on the radial aspect I subsequently drilled tapped and holding the thumb in appropriate adduction with not over distraction keeping it in line with the base of the second and subsequently loaded suturetape under appropriate tension and thumb positioning keeping the thumb in adduction and appropriate length impacted this suture anchor which had excellent fixation and the excess suture was then removed.? This was then confirmed to have excellent axial stability and an appropriate suspensioplasty.? In order to help add with fixation& interposition within the voided space from the trapeziectomy I then identified a slip of the APL which was then harvested proximally and then weaved this through the FCR tendon twice and then tied this onto the APL tendon itself which created a soft tissue interposition as well as added appropriate abduction to the thumb with appropriate thumb position.? This was then secured with 2 horizontal mattress stitches with 4-0 FiberWire.? I then took the excess of the APL tendon and then placed this within the voided space as a interposition.? I then subsequently had the tourniquet deflated.? Hemostasis was satisfactory.? I then took some Gelfoam to add for soft tissue and interposition within the voided space and hemostasis.? I then closed the capsule with Monocryl suture.? Wound bed was once again thoroughly irrigated.? I then closed the incision with deep 3-0 Vicryl and nylon sutures for skin.? Final x-rays with mini C arm were then taken showing stable trapeziectomy with soft tissue and suture anchor interposition.? Thumb had excellent axial stability as well as appropriate positioning.? Patient was then dressed with 4 x 4's ABD Curlex and a thumb spica splint.? With an Sandor wrap.? Patient was awakened from anesthesia and taken to PACU in stable condition. Disposition: Patient taken to PACU in stable condition recovering well.? Patient will receive appropriate discharge instructions as well as pain medication postoperatively.? Patient will follow therapy protocol with OT hand therapy for basal joint arthroplasty.? Patient understands agrees with current plan.? All questions answered.? We will see me in the office in 2 weeks.
[2023-09-30] MEDS: HYDROmorphone 1 mg/mL INJ 1 mL 0.5 MG IVP ×2 (13:18→13:25)
--- NOTE | 2023-09-30 15:05 | ANE.PACU2 ---
Inpatient post-anesthesia follow up: Airway intact: Yes Vital signs: Temperature 98.3 F Pulse Rate 87 Respiratory Rate 16 Blood Pressure 138/75 Pulse Oximetry 92 Oxygen Delivery Me thod Room Air Oxygen Flow Rate 6 Fraction of Inspir ed Oxygen Hydration adequate: Yes Nausea and vomiting: No Pain level: 1 Mental status: Baseline
== END 2023-09-30 15:05 | disposition home or self-care (01) ==
PROVIDERS: PCP Family Medicine Adult Medicine; Visit Provider Student in an Organized Health Care Education/Training Program
PROC: (CPT 64721; principal; 2023-09-30 08:55)
PROC: (CPT 26535; 2023-09-30 08:55)
DX: G56.02 Carpal tunnel syndrome, left upper limb (principal); M19.042 Primary osteoarthritis, left hand; I10 Essential (primary) hypertension; K21.9 Gastro-esophageal reflux disease without esophagitis; G47.30 Sleep apnea, unspecified; E66.01 Morbid (severe) obesity due to excess calories; Z68.42 Body mass index [BMI] 45.0-49.9, adult; E11.69 Type 2 diabetes mellitus with other specified complication; Z79.899 Other long term (current) drug therapy; G47.33 Obstructive sleep apnea (adult) (pediatric)
CPT/HCPCS: 26480; 26535; 64721; 36416; 73140; 76000; 82962; C1713; J0131; J0330; J0690; J1100; J1170; J1885; J2250; J2405; J2704; J2795; J3010; J7030

== ENCOUNTER 2023-10-14 11:43 | Outpatient (CLI) | payer MEDICARE, SELFPAY | END 2023-10-14 11:44 | disposition home or self-care (01) | LOC: SPT 11:44 | PROVIDERS: PCP Family Medicine Adult Medicine; Visit Provider Physician Assistant | DX: Z46.89 Encounter for fitting and adjustment of other specified devices (principal); G56.02 Carpal tunnel syndrome, left upper limb | CPT/HCPCS: 97760; 99024; L3809 ==

== ENCOUNTER 2023-11-09 07:09 | Outpatient (RCR) | payer MEDICARE, SELFPAY | END 2023-11-28 23:59 | disposition home or self-care (01) | LOC: SOT 07:09 | PROVIDERS: PCP Family Medicine Adult Medicine; Visit Provider Student in an Organized Health Care Education/Training Program | DX: Z47.89 Encounter for other orthopedic aftercare (principal) | CPT/HCPCS: 97110; 97165; 97530 ==

== ENCOUNTER 2023-11-16 07:51 | Outpatient (RCR) | payer MEDICARE, SELFPAY | END 2023-11-28 23:59 | disposition home or self-care (01) | LOC: SPT 07:51 | PROVIDERS: Visit Provider Orthopaedic Surgery Adult Reconstructive Orthopaedic Surgery | DX: Z98.890 Other specified postprocedural states (principal) | CPT/HCPCS: 97110; 97161 ==

== ENCOUNTER 2023-11-23 11:55 | Oncology outpatient (recurring) (ONCR) | payer MEDICARE, SELFPAY ==
--- NOTE | 2023-11-09 12:14 | PC.NURSE ---
Labs drawn on 11/09/[address] orders [address] Ashu House MD- Moira Rn
[2023-11-09 12:36] VITALS: BP 140/88; PULSE 88; RESP 18; TEMP 36.6; O2SAT 92
[2023-11-09 13:08] LABS: Basophils # 0.1 10^3/uL (0.0-0.1); Basophils % 0.7 %; Eosinophils # 1.3 10^3/uL (0.0-0.8); Eosinophils % 10.9 %; Hematocrit 37.8 % (37-53); Lymphocytes # 2.9 10^3/uL (0.8-4.8); Lymphocytes % 24.7 %; Mean Corpuscular HGB Conc 31.7 g/dL (30-55); Mean Corpuscular Hemoglobin 27.9 pg (27-33); Mean Corpuscular Volume 87.9 fl (82-101); Mean Platelet Volume 8.7 fL (7.4-10.4); Monocytes # 0.9 10^3/uL (0.2-0.9); Monocytes % 7.5 %; Neutrophils # 6.64 10^3/uL (1.8-7.7); Neutrophils % 55.7 %; Nucleated Red Blood Cells % 0 %; Platelet Count 542 10^3/cmm (157-399); Red Cell Distribution Width 13.7 % (12.1-15.1); White Blood Count 11.91 10^3/uL (3.29-11.43)
[2023-11-09 13:22] LABS: Alanine Aminotransferase 31 U/L (0-41); Albumin Level 3.8 g/dL (3.5-5.2); Alkaline Phosphatase 112 U/L (40-130); Aspartate Amino Transferase 25 U/L (0-40); Blood Urea Nitrogen 8 mg/dL (8-23); Calcium 9.5 mg/dL (8.5-10.5); Carbon Dioxide 33 mmol/L (22-29); Chloride 99 mmol/L (98-107); Glomerular Filtration Rate 97.6 mL/min (90-130); Glucose 126 mg/dL (65-115); Osmolality Calculated 286 mOsm/kg (285-295); Sodium 138 mmol/L (136-145); Total Bilirubin 0.3 mg/dL (0.15-1.2); Total Protein 6.8 g/dL (6.6-8.7); Vancomycin Random 15.2 ug/mL (20.0-40.0)
[2023-11-16 09:44] VITALS: BP 135/76; PULSE 73; RESP 18; TEMP 36.8; O2SAT 97
[2023-11-16 10:17] LABS: Basophils # 0.1 10^3/uL (0.0-0.1); Basophils % 0.9 %; Eosinophils # 1.1 10^3/uL (0.0-0.8); Eosinophils % 10.3 %; Hematocrit 38.2 % (37-53); Lymphocytes # 3.1 10^3/uL (0.8-4.8); Lymphocytes % 29.4 %; Mean Corpuscular HGB Conc 31.9 g/dL (30-55); Mean Corpuscular Hemoglobin 28.1 pg (27-33); Mean Platelet Volume 8.8 fL (7.4-10.4); Monocytes # 1.1 10^3/uL (0.2-0.9); Monocytes % 10.2 %; Neutrophils # 5.15 10^3/uL (1.8-7.7); Neutrophils % 48.9 %; Nucleated Red Blood Cells % 0 %; Platelet Count 523 10^3/cmm (157-399); Red Blood Count 4.34 10^6/uL (3.85-5.65); Red Cell Distribution Width 13.8 % (12.1-15.1); White Blood Count 10.53 10^3/uL (3.29-11.43)
[2023-11-16 10:43] LABS: Alanine Aminotransferase 21 U/L (0-41); Alkaline Phosphatase 128 U/L (40-130); Aspartate Amino Transferase 23 U/L (0-40); Blood Urea Nitrogen 12 mg/dL (8-23); Carbon Dioxide 32 mmol/L (22-29); Chloride 96 mmol/L (98-107); Globulin 3.2 g/dL (1.3-4.6); Glomerular Filtration Rate 67.6 mL/min (90-130); Glucose 127 mg/dL (65-115); Osmolality Calculated 283 mOsm/kg (285-295); Sodium 136 mmol/L (136-145); Total Bilirubin 0.4 mg/dL (0.15-1.2); Total Protein 7.2 g/dL (6.6-8.7)
[2023-11-16 10:44] LABS: Vancomycin Trough 15.3 ug/mL (10-15)
--- NOTE | 2023-11-18 13:51 | PC.PHAR ---
PATIENT STATES HE NEEDS ONLY ONE TREATMENT TODAY. THE REMAINDER OF HIS DOSAGES HAVE BEEN DELIVERED TO HIS HOME FOR SELF ADMINISTRATION
[2023-11-18 14:35] VITALS: BP 135/78; PULSE 74; RESP 18; TEMP 36.6; O2SAT 98
[2023-11-18 15:00] VITALS: BP 132/68; PULSE 74; RESP 18; TEMP 36.6; O2SAT 97
[2023-11-23 12:20] VITALS: BP 128/83; PULSE 76; RESP 16; TEMP 36.2; O2SAT 92
[2023-11-23 12:53] LABS: Basophils # 0.1 10^3/uL (0.0-0.1); Basophils % 0.6 %; Eosinophils % 10.2 %; Hematocrit 38.4 % (37-53); Mean Corpuscular HGB Conc 32.3 g/dL (30-55); Mean Corpuscular Hemoglobin 27.8 pg (27-33); Mean Corpuscular Volume 86.1 fl (82-101); Mean Platelet Volume 9.1 fL (7.4-10.4); Monocytes % 9.4 %; Neutrophils # 5.14 10^3/uL (1.8-7.7); Neutrophils % 50.6 %; Nucleated Red Blood Cells % 0 %; Platelet Count 362 10^3/cmm (157-399); Red Blood Count 4.46 10^6/uL (3.85-5.65); Red Cell Distribution Width 13.4 % (12.1-15.1); White Blood Count 10.17 10^3/uL (3.29-11.43)
[2023-11-23 13:09] LABS: Erythrocyte Sedimentation Rate 56 mm/hr (0-10)
[2023-11-23 13:11] LABS: Alanine Aminotransferase 22 U/L (0-41); Albumin Level 4.1 g/dL (3.5-5.2); Alkaline Phosphatase 124 U/L (40-130); Anion Gap 12.8 (5-19); Aspartate Amino Transferase 22 U/L (0-40); Blood Urea Nitrogen 15 mg/dL (8-23); C Reactive Protein 22.2 mg/L (0.0-4.9); Calcium 10.1 mg/dL (8.5-10.5); Carbon Dioxide 32 mmol/L (22-29); Chloride 94 mmol/L (98-107); Globulin 3.3 g/dL (1.3-4.6); Glomerular Filtration Rate 85.2 mL/min (90-130); Glucose 114 mg/dL (65-115); Osmolality Calculated 282 mOsm/kg (285-295); Potassium 3.8 mmol/L (3.5-5.1); Sodium 135 mmol/L (136-145); Total Bilirubin 0.4 mg/dL (0.15-1.2); Total Protein 7.4 g/dL (6.6-8.7)
== END 2023-11-28 23:59 | disposition home or self-care (01) ==
PROVIDERS: PCP Family Medicine Adult Medicine; Visit Provider Orthopaedic Surgery Adult Reconstructive Orthopaedic Surgery
DX: T84.093A Other mechanical complication of internal left knee prosthesis, initial encounter; Y83.8 Other surgical procedures as the cause of abnormal reaction of the patient, or of later complication, without mention of misadventure at the time of the procedure; C44.91 Basal cell carcinoma of skin, unspecified; Z53.9 Procedure and treatment not carried out, unspecified reason
CPT/HCPCS: 36592; 80053; 80202; 85025; 85651; 86140; 96365; J0878

== ENCOUNTER → 2023-11-25 07:44 | Outpatient (BNVA) | payer MEDICARE, SELFPAY | PROVIDERS: Visit Provider Physician Assistant | DX: Z98.890 Other specified postprocedural states (principal); M18.12 Unilateral primary osteoarthritis of first carpometacarpal joint, left hand | CPT/HCPCS: 99024 ==

== ENCOUNTER 2023-11-29 06:00 | Outpatient (RCR) | payer MEDICARE, SELFPAY | END 2023-12-29 23:59 | disposition home or self-care (01) | LOC: SOT 06:00 | PROVIDERS: PCP Family Medicine Adult Medicine; Visit Provider Student in an Organized Health Care Education/Training Program | DX: Z47.89 Encounter for other orthopedic aftercare (principal) | CPT/HCPCS: 97022; 97110; 97140 ==

== ENCOUNTER 2023-12-14 12:00 | Oncology outpatient (recurring) (ONCR) | payer MEDICARE, SELFPAY ==
[2023-11-30 13:29] VITALS: BP 134/60; PULSE 67; RESP 18; TEMP 36.6; O2SAT 97
[2023-11-30 13:56] LABS: Basophils # 0.1 10^3/uL (0.0-0.1); Basophils % 0.6 %; Eosinophils # 0.9 10^3/uL (0.0-0.8); Eosinophils % 8.7 %; Lymphocytes # 3.1 10^3/uL (0.8-4.8); Mean Corpuscular HGB Conc 32.7 g/dL (30-55); Mean Corpuscular Hemoglobin 28.1 pg (27-33); Mean Platelet Volume 9.3 fL (7.4-10.4); Monocytes % 9.3 %; Neutrophils # 5.52 10^3/uL (1.8-7.7); Neutrophils % 52.1 %; Nucleated Red Blood Cells % 0 %; Platelet Count 342 10^3/cmm (157-399); Red Cell Distribution Width 13.2 % (12.1-15.1); White Blood Count 10.58 10^3/uL (3.29-11.43)
[2023-11-30 14:14] LABS: Alanine Aminotransferase 19 U/L (0-41); Alkaline Phosphatase 116 U/L (40-130); Anion Gap 13.4 (5-19); Aspartate Amino Transferase 21 U/L (0-40); Blood Urea Nitrogen 15 mg/dL (8-23); Calcium 9.9 mg/dL (8.5-10.5); Carbon Dioxide 30 mmol/L (22-29); Chloride 96 mmol/L (98-107); Globulin 3.5 g/dL (1.3-4.6); Glomerular Filtration Rate 85.2 mL/min (90-130); Glucose 113 mg/dL (65-115); Osmolality Calculated 284 mOsm/kg (285-295); Potassium 3.4 mmol/L (3.5-5.1); Sodium 136 mmol/L (136-145); Total Bilirubin 0.4 mg/dL (0.15-1.2); Total Protein 7.5 g/dL (6.6-8.7)
[2023-11-30 14:38] LABS: Vancomycin Trough < 4.0 ug/mL (10-15)
[2023-12-07 12:00] VITALS: BP 128/69; PULSE 77; RESP 16; TEMP 36.4; O2SAT 92
[2023-12-07 12:14] LABS: Basophils % 0.4 %; Eosinophils # 0.6 10^3/uL (0.0-0.8); Eosinophils % 6.1 %; Hematocrit 39.3 % (37-53); Lymphocytes # 3.3 10^3/uL (0.8-4.8); Lymphocytes % 37.1 %; Mean Corpuscular HGB Conc 32.1 g/dL (30-55); Mean Corpuscular Hemoglobin 27.3 pg (27-33); Mean Corpuscular Volume 85.1 fl (82-101); Mean Platelet Volume 8.8 fL (7.4-10.4); Monocytes # 0.8 10^3/uL (0.2-0.9); Monocytes % 8.5 %; Neutrophils # 4.27 10^3/uL (1.8-7.7); Neutrophils % 47.8 %; Nucleated Red Blood Cells % 0 %; Platelet Count 438 10^3/cmm (157-399); Red Blood Count 4.62 10^6/uL (3.85-5.65); Red Cell Distribution Width 13.3 % (12.1-15.1); White Blood Count 8.95 10^3/uL (3.29-11.43)
[2023-12-07 12:31] LABS: Alanine Aminotransferase 29 U/L (0-41); Albumin Level 3.9 g/dL (3.5-5.2); Alkaline Phosphatase 108 U/L (40-130); Anion Gap 14.3 (5-19); Aspartate Amino Transferase 36 U/L (0-40); Blood Urea Nitrogen 14 mg/dL (8-23); C Reactive Protein 16.4 mg/L (0.0-4.9); Calcium 10.1 mg/dL (8.5-10.5); Carbon Dioxide 31 mmol/L (22-29); Chloride 96 mmol/L (98-107); Globulin 3.6 g/dL (1.3-4.6); Glomerular Filtration Rate 75.5 mL/min (90-130); Glucose 109 mg/dL (65-115); Osmolality Calculated 287 mOsm/kg (285-295); Potassium 3.3 mmol/L (3.5-5.1); Sodium 138 mmol/L (136-145); Total Bilirubin 0.3 mg/dL (0.15-1.2); Total Protein 7.5 g/dL (6.6-8.7)
[2023-12-07 13:01] LABS: Erythrocyte Sedimentation Rate 39 mm/hr (0-10)
[2023-12-14 12:45] VITALS: BP 115/71; PULSE 64; RESP 18; TEMP 36.9; O2SAT 94
== END 2023-12-29 23:59 | disposition home or self-care (01) ==
PROVIDERS: PCP Family Medicine Adult Medicine; Visit Provider Orthopaedic Surgery Adult Reconstructive Orthopaedic Surgery
DX: Z53.9 Procedure and treatment not carried out, unspecified reason (principal); Z45.2 Encounter for adjustment and management of vascular access device
CPT/HCPCS: 36592; 80053; 80202; 85025; 85651; 86140

== ENCOUNTER 2024-01-03 16:36 | Outpatient (CLI) | payer MEDICARE, SELFPAY ==
[2024-01-03 17:18] LABS: Basophils # 0.1 10^3/uL (0.0-0.1); Basophils % 0.5 %; Eosinophils # 0.9 10^3/uL (0.0-0.8); Eosinophils % 7.9 %; Hematocrit 40.7 % (37-53); Lymphocytes # 3.7 10^3/uL (0.8-4.8); Lymphocytes % 33.6 %; Mean Corpuscular HGB Conc 32.2 g/dL (30-55); Mean Corpuscular Hemoglobin 27.6 pg (27-33); Mean Corpuscular Volume 85.9 fl (82-101); Mean Platelet Volume 9.4 fL (7.4-10.4); Monocytes # 1.1 10^3/uL (0.2-0.9); Monocytes % 9.8 %; Neutrophils # 5.24 10^3/uL (1.8-7.7); Neutrophils % 47.8 %; Nucleated Red Blood Cells % 0 %; Platelet Count 326 10^3/cmm (157-399); Red Blood Count 4.74 10^6/uL (3.85-5.65); Red Cell Distribution Width 14.1 % (12.1-15.1); White Blood Count 10.98 10^3/uL (3.29-11.43)
[2024-01-03 17:35] LABS: Alanine Aminotransferase 21 U/L (0-41); Albumin Level 4.1 g/dL (3.5-5.2); Alkaline Phosphatase 117 U/L (40-130); Anion Gap 11.9 (5-19); Aspartate Amino Transferase 22 U/L (0-40); Blood Urea Nitrogen 15 mg/dL (8-23); C Reactive Protein 8.5 mg/L (0.0-4.9); Calcium 9.8 mg/dL (8.5-10.5); Carbon Dioxide 30 mmol/L (22-29); Chloride 97 mmol/L (98-107); Globulin 3.7 g/dL (1.3-4.6); Glucose 108 mg/dL (65-115); Osmolality Calculated 281 mOsm/kg (285-295); Potassium 3.9 mmol/L (3.5-5.1); Sodium 135 mmol/L (136-145); Total Bilirubin 0.3 mg/dL (0.15-1.2); Total Protein 7.8 g/dL (6.6-8.7)
[2024-01-03 17:37] LABS: D Dimer 5.81 ug/mLFEU (0-0.59)
[2024-01-03 17:59] LABS: Erythrocyte Sedimentation Rate 40 mm/hr (0-10)
== END 2024-01-03 16:37 | disposition home or self-care (01) ==
PROVIDERS: PCP Family Medicine Adult Medicine; Visit Provider Orthopaedic Surgery Adult Reconstructive Orthopaedic Surgery
DX: Z01.818 Encounter for other preprocedural examination (principal); Z47.1 Aftercare following joint replacement surgery
CPT/HCPCS: 80053; 85025; 85378; 85651; 86140

== ENCOUNTER → 2024-01-20 07:59 | Outpatient (BNVA) | payer MEDICARE, SELFPAY | PROVIDERS: PCP Family Medicine Adult Medicine; Visit Provider Physician Assistant | DX: Z98.890 Other specified postprocedural states (principal); M65.332 Trigger finger, left middle finger; M18.2 Bilateral post-traumatic osteoarthritis of first carpometacarpal joints | CPT/HCPCS: 99213 ==

== ENCOUNTER 2024-02-22 08:42 | Oncology outpatient (recurring) (ONCR) | payer MEDICARE, SELFPAY ==
[2024-02-22 09:50] LABS: Basophils # 0.1 10^3/uL (0.0-0.1); Basophils % 0.9 %; Eosinophils # 0.4 10^3/uL (0.0-0.8); Hematocrit 29.1 % (37-53); Lymphocytes # 2.6 10^3/uL (0.8-4.8); Lymphocytes % 28.3 %; Mean Corpuscular HGB Conc 30.9 g/dL (30-55); Mean Corpuscular Hemoglobin 27.4 pg (27-33); Mean Corpuscular Volume 88.7 fl (82-101); Mean Platelet Volume 8.5 fL (7.4-10.4); Monocytes # 1.4 10^3/uL (0.2-0.9); Monocytes % 14.9 %; Neutrophils # 4.77 10^3/uL (1.8-7.7); Neutrophils % 51.5 %; Nucleated Red Blood Cells % 0 %; Platelet Count 688 10^3/cmm (157-399); Red Blood Count 3.28 10^6/uL (3.85-5.65); Red Cell Distribution Width 15.2 % (12.1-15.1); White Blood Count 9.26 10^3/uL (3.29-11.43)
[2024-02-22 10:12] LABS: Alanine Aminotransferase < 5 U/L (0-41); Albumin Level 3.4 g/dL (3.5-5.2); Alkaline Phosphatase 135 U/L (40-130); Aspartate Amino Transferase 15 U/L (0-40); Blood Urea Nitrogen 11 mg/dL (8-23); Calcium 9.3 mg/dL (8.5-10.5); Carbon Dioxide 29 mmol/L (22-29); Chloride 98 mmol/L (98-107); Globulin 4.2 g/dL (1.3-4.6); Glomerular Filtration Rate 113.5 mL/min (90-130); Glucose 101 mg/dL (65-115); Osmolality Calculated 284 mOsm/kg (285-295); Sodium 137 mmol/L (136-145); Total Bilirubin 0.2 mg/dL (0.15-1.2); Total Protein 7.6 g/dL (6.6-8.7)
[2024-02-22 10:24] LABS: Vancomycin Random < 4.0 ug/mL (20.0-40.0)
== END 2024-02-27 23:59 | disposition home or self-care (01) ==
PROVIDERS: PCP Family Medicine Adult Medicine; Visit Provider Orthopaedic Surgery Adult Reconstructive Orthopaedic Surgery
DX: M00.9 Pyogenic arthritis, unspecified (principal); Z98.890 Other specified postprocedural states; Z53.9 Procedure and treatment not carried out, unspecified reason
CPT/HCPCS: 36592; 80053; 80202; 85025

== ENCOUNTER 2024-03-28 09:00 | Oncology outpatient (recurring) (ONCR) | payer MEDICARE, SELFPAY ==
[2024-02-29 08:58] VITALS: BP 134/83; PULSE 75; RESP 20; TEMP 36.4; O2SAT 96
[2024-02-29 09:36] LABS: Basophils # 0.1 10^3/uL (0.0-0.1); Basophils % 0.6 %; Eosinophils # 0.6 10^3/uL (0.0-0.8); Eosinophils % 6.6 %; Hematocrit 29.8 % (37-53); Lymphocytes # 2.8 10^3/uL (0.8-4.8); Lymphocytes % 30.7 %; Mean Corpuscular HGB Conc 30.9 g/dL (30-55); Mean Corpuscular Hemoglobin 27.4 pg (27-33); Mean Corpuscular Volume 88.7 fl (82-101); Mean Platelet Volume 8.6 fL (7.4-10.4); Monocytes # 0.8 10^3/uL (0.2-0.9); Monocytes % 9.1 %; Neutrophils # 4.78 10^3/uL (1.8-7.7); Neutrophils % 52.8 %; Nucleated Red Blood Cells % 0 %; Platelet Count 450 10^3/cmm (157-399); Red Blood Count 3.36 10^6/uL (3.85-5.65); Red Cell Distribution Width 15.1 % (12.1-15.1); White Blood Count 9.05 10^3/uL (3.29-11.43)
[2024-02-29 09:53] LABS: Alanine Aminotransferase 6 U/L (0-41); Albumin Level 3.6 g/dL (3.5-5.2); Alkaline Phosphatase 121 U/L (40-130); Aspartate Amino Transferase 12 U/L (0-40); Blood Urea Nitrogen 9 mg/dL (8-23); Calcium 9.4 mg/dL (8.5-10.5); Carbon Dioxide 28 mmol/L (22-29); Chloride 100 mmol/L (98-107); Glomerular Filtration Rate 113.5 mL/min (90-130); Glucose 109 mg/dL (65-115); Osmolality Calculated 283 mOsm/kg (285-295); Sodium 137 mmol/L (136-145); Total Bilirubin 0.2 mg/dL (0.15-1.2); Total Protein 7.6 g/dL (6.6-8.7)
[2024-03-07 09:00] VITALS: BP 122/78; PULSE 78; RESP 18; TEMP 36.6; O2SAT 98
[2024-03-07 09:32] LABS: Basophils # 0.1 10^3/uL (0.0-0.1); Basophils % 0.5 %; Eosinophils # 0.4 10^3/uL (0.0-0.8); Hematocrit 30.8 % (37-53); Lymphocytes # 2.7 10^3/uL (0.8-4.8); Lymphocytes % 28.7 %; Mean Corpuscular HGB Conc 31.2 g/dL (30-55); Mean Corpuscular Hemoglobin 27.4 pg (27-33); Mean Corpuscular Volume 87.7 fl (82-101); Mean Platelet Volume 8.8 fL (7.4-10.4); Monocytes # 0.9 10^3/uL (0.2-0.9); Monocytes % 9.5 %; Neutrophils # 5.31 10^3/uL (1.8-7.7); Nucleated Red Blood Cells % 0 %; Platelet Count 386 10^3/cmm (157-399); Red Blood Count 3.51 10^6/uL (3.85-5.65); Red Cell Distribution Width 14.8 % (12.1-15.1); White Blood Count 9.33 10^3/uL (3.29-11.43)
[2024-03-07 09:49] LABS: Alanine Aminotransferase < 5 U/L (0-41); Albumin Level 3.6 g/dL (3.5-5.2); Alkaline Phosphatase 108 U/L (40-130); Anion Gap 16.1 (5-19); Aspartate Amino Transferase 15 U/L (0-40); Blood Urea Nitrogen 11 mg/dL (8-23); Calcium 9.3 mg/dL (8.5-10.5); Carbon Dioxide 27 mmol/L (22-29); Chloride 98 mmol/L (98-107); Glucose 150 mg/dL (65-115); Osmolality Calculated 286 mOsm/kg (285-295); Potassium 4.1 mmol/L (3.5-5.1); Sodium 137 mmol/L (136-145); Total Bilirubin 0.2 mg/dL (0.15-1.2); Total Protein 7.6 g/dL (6.6-8.7)
[2024-03-14 09:16] VITALS: BP 155/80; PULSE 73; RESP 18; TEMP 36.4; O2SAT 93
[2024-03-14 09:30] VITALS: BP 134/78; PULSE 74; RESP 18; TEMP 36.6; O2SAT 98
[2024-03-14 10:11] LABS: Basophils # 0.1 10^3/uL (0.0-0.1); Basophils % 0.6 %; Eosinophils # 0.5 10^3/uL (0.0-0.8); Eosinophils % 6.1 %; Hematocrit 32.9 % (37-53); Lymphocytes # 2.8 10^3/uL (0.8-4.8); Lymphocytes % 35.9 %; Mean Corpuscular HGB Conc 31.3 g/dL (30-55); Mean Corpuscular Hemoglobin 27.5 pg (27-33); Mean Corpuscular Volume 87.7 fl (82-101); Mean Platelet Volume 9.1 fL (7.4-10.4); Monocytes # 0.8 10^3/uL (0.2-0.9); Neutrophils # 3.73 10^3/uL (1.8-7.7); Neutrophils % 47.3 %; Nucleated Red Blood Cells % 0 %; Platelet Count 409 10^3/cmm (157-399); Red Blood Count 3.75 10^6/uL (3.85-5.65); Red Cell Distribution Width 14.6 % (12.1-15.1); White Blood Count 7.89 10^3/uL (3.29-11.43)
[2024-03-14 10:12] LABS: Erythrocyte Sedimentation Rate 52 mm/hr (0-10)
[2024-03-14 10:33] LABS: Alanine Aminotransferase 12 U/L (0-41); Albumin Level 3.9 g/dL (3.5-5.2); Alkaline Phosphatase 108 U/L (40-130); Aspartate Amino Transferase 22 U/L (0-40); Blood Urea Nitrogen 15 mg/dL (8-23); C Reactive Protein 24.6 mg/L (0.0-4.9); Carbon Dioxide 28 mmol/L (22-29); Chloride 99 mmol/L (98-107); Glomerular Filtration Rate 135.6 mL/min (90-130); Glucose 96 mg/dL (65-115); Osmolality Calculated 285 mOsm/kg (285-295); Sodium 137 mmol/L (136-145); Total Bilirubin 0.2 mg/dL (0.15-1.2); Total Protein 7.9 g/dL (6.6-8.7)
[2024-03-21 09:26] LABS: Basophils # 0.1 10^3/uL (0.0-0.1); Basophils % 0.7 %; Eosinophils # 0.6 10^3/uL (0.0-0.8); Eosinophils % 8.2 %; Hematocrit 34.9 % (37-53); Lymphocytes # 3.1 10^3/uL (0.8-4.8); Lymphocytes % 42.1 %; Mean Corpuscular HGB Conc 30.4 g/dL (30-55); Mean Corpuscular Hemoglobin 26.9 pg (27-33); Mean Corpuscular Volume 88.6 fl (82-101); Mean Platelet Volume 9.4 fL (7.4-10.4); Monocytes # 0.8 10^3/uL (0.2-0.9); Monocytes % 11.5 %; Neutrophils # 2.72 10^3/uL (1.8-7.7); Neutrophils % 37.2 %; Nucleated Red Blood Cells % 0 %; Platelet Count 398 10^3/cmm (157-399); Red Blood Count 3.94 10^6/uL (3.85-5.65); Red Cell Distribution Width 14.6 % (12.1-15.1)
[2024-03-21 09:48] LABS: Alanine Aminotransferase 6 U/L (0-41); Albumin Level 3.8 g/dL (3.5-5.2); Alkaline Phosphatase 108 U/L (40-130); Anion Gap 13.1 (5-19); Aspartate Amino Transferase 18 U/L (0-40); Blood Urea Nitrogen 13 mg/dL (8-23); Calcium 9.6 mg/dL (8.5-10.5); Carbon Dioxide 29 mmol/L (22-29); Chloride 101 mmol/L (98-107); Globulin 3.8 g/dL (1.3-4.6); Glomerular Filtration Rate 113.5 mL/min (90-130); Glucose 101 mg/dL (65-115); Osmolality Calculated 288 mOsm/kg (285-295); Potassium 4.1 mmol/L (3.5-5.1); Sodium 139 mmol/L (136-145); Total Bilirubin 0.2 mg/dL (0.15-1.2); Total Protein 7.6 g/dL (6.6-8.7)
== END 2024-03-28 23:59 | disposition home or self-care (01) ==
PROVIDERS: PCP Family Medicine Adult Medicine; Visit Provider Orthopaedic Surgery Adult Reconstructive Orthopaedic Surgery
DX: Z53.9 Procedure and treatment not carried out, unspecified reason (principal)
CPT/HCPCS: 36592; 80053; 85025; 85651; 86140

== ENCOUNTER 2024-04-13 06:13 | Outpatient (CLI) | payer MEDICARE, SELFPAY ==
--- NOTE | 2024-04-13 06:30 | US_ITS ---
WS: [id number] TESTICULAR ULTRASOUND HISTORY: right scrotum swelling COMPARISON: None available. TECHNIQUE: Real-time and color Doppler imaging or utilized to perform a testicular ultrasound. Right testicle: 2.7 cm x 3.7 cm x 3.0 cm. Normal sized testicle. There is mild heterogeneity throughout the testicle. There is no mass or torsi on. Heterogeneity is probably related to prior episodes of inflammation or infection. Normal color Doppler is present throughout. Systolic and diastolic velocities are both present. Large surrounding hydrocele. Hydrocele contains low-level echoes. There is also mild scrotal wall thi ckening. Right epididymis: Normal epididymis with no increased vascularity. Left testicle: 2.7 cm x 3.5 cm x 2.9 cm. Normal size and echogenicity. No mass or torsion. Normal color Doppler is present throughout. Systolic and diastolic velocities are both present. Small surrounding hydrocele. Left epididymis: Normal epididymis with no increased vascularity. US/US scrotum [id number] IMPRESSION: 1. Large mildly complex RIGHT hydrocele. Hydrocele surrounds the entire testic le with overlying scrotal wall thickening. 2. Smaller simpler LEFT hydrocele. 3. No testicular mass or torsion. 4. No orchitis or epididymitis.
== END 2024-04-13 06:14 | disposition home or self-care (01) ==
LOC: RAD 06:13
PROVIDERS: PCP Family Medicine Adult Medicine; Visit Provider Family Medicine Adult Medicine
DX: N50.89 Other specified disorders of the male genital organs (principal); N43.3 Hydrocele, unspecified
CPT/HCPCS: 76870

== ENCOUNTER 2024-05-08 07:11 | Oncology outpatient (recurring) (ONCR) | payer MEDICARE, SELFPAY ==
[2024-05-08 08:18] LABS: C Reactive Protein 7.5 mg/L (0.0-4.9)
[2024-05-08 08:49] LABS: Erythrocyte Sedimentation Rate 39 mm/hr (0-10)
== END 2024-05-28 23:59 | disposition home or self-care (01) ==
LOC: ONCMED 07:12
PROVIDERS: PCP Family Medicine Adult Medicine; Visit Provider Orthopaedic Surgery Adult Reconstructive Orthopaedic Surgery
DX: M00.9 Pyogenic arthritis, unspecified (principal)
CPT/HCPCS: 36415; 85651; 86140

== ENCOUNTER → 2024-11-08 10:26 | Outpatient (BNVA) | payer MEDICARE, SELFPAY | PROVIDERS: PCP Family Medicine; Visit Provider Family Medicine | DX: I10 Essential (primary) hypertension (principal); E11.69 Type 2 diabetes mellitus with other specified complication; N40.0 Benign prostatic hyperplasia without lower urinary tract symptoms; E66.9 Obesity, unspecified; N43.3 Hydrocele, unspecified | CPT/HCPCS: 80053; 80061; 83036; 84153; 84439; 84443; 85025 ==

== ENCOUNTER 2025-03-06 09:08 | Outpatient (CLI) | payer OTHER, SELFPAY ==
--- NOTE | 2025-03-06 09:12 | FL_ITS ---
WS: [id number] Exam: FL barium swallow [id number] Date/Time of Exam: 03/06/2025 10:24 AM Reason For Exam: [id number] Fluoroscopy time: 1min [id number] minutes # of spot films: 6 Oropharyngeal phase of swallowing was normal. Significant posterior extrinsic compression on the cervical esophagus at about the level of C5 and C6 secondary to large ossified anterior osteophytes that bridge the cervical spine anteriorly from C4-C7. This causes about 50 to 60% luminal narrowing of the cervical esophagus. There is also a second extrinsic area of posterior compression at about the level of T3 and T4 which may be secondary to an aberrant RIGHT subclavian artery defect. This causes 50% narrowing of the esophageal lumen at this level. There was no intrinsic esophageal mass. No other areas of stricture. No hiatal hernia or gastroesophageal reflux. Mild esophageal spasm in the midportion. FL/FL barium swallow [id number] IMPRESSION: 1. Significant narrowing of the cervical esophagus secondary to posterior extri nsic compression from the large spondylitic bone formation extending from C4-C7 . 2. Narrowing the of the esophagus at about the T3-4 level secondary to posterio r extrinsic compression. This may be secondary to aberrant RIGHT subclavian art jayson. 3. There was no intrinsic esophageal mass or stricture identified otherwise.
== END 2025-03-06 09:09 | disposition home or self-care (01) ==
PROVIDERS: PCP Family Medicine; Visit Provider Specialist
DX: R13.19 Other dysphagia (principal); K22.2 Esophageal obstruction; R93.89 Abnormal findings on diagnostic imaging of other specified body structures; K22.4 Dyskinesia of esophagus
CPT/HCPCS: 74220

== ENCOUNTER 2025-03-14 20:00 | Outpatient (CLI) | payer OTHER, SELFPAY | END 2025-03-14 20:01 | disposition home or self-care (01) | LOC: SLEEP 03-15 01:43 | PROVIDERS: PCP Family Medicine; Visit Provider Family Medicine | DX: G47.33 Obstructive sleep apnea (adult) (pediatric) (principal) | CPT/HCPCS: 95811 ==

== ENCOUNTER 2025-03-20 08:28 | Outpatient (CLI) | payer MEDICARE, SELFPAY ==
--- NOTE | 2025-03-20 08:35 | FL_ITS ---
WS: [id number] Exam: FL barium swallow modifd [id number] Date/Time of Exam: 03/20/2025 8:56 AM Reason For Exam: Other dysphagia Fluoroscopy time: 2min [id number] minutes # of spot films: 0 Modified barium swallow test was performed in conjunction with the speech therapy service. Comparison made with conventional barium swallow test performed 03/06/2025. Oropharyngeal phase of swallowing was normal. The patient tolerated all consistencies of barium mixture foodstuffs without aspiration or penetration. The patient swallowed a barium tablet without difficulty. Again noted is large anterior bridging osteophyte formation extending from C4-C7 as previously described. FL/FL barium swallow modifd [id number] IMPRESSION: 1. Unremarkable modified barium swallow test. No aspiration or penetration. A separate report with recommendations will follow from the speech therapy serv ice.
== END 2025-03-20 08:29 | disposition home or self-care (01) ==
LOC: RAD 08:31
PROVIDERS: PCP Family Medicine; Visit Provider Specialist
DX: R13.19 Other dysphagia (principal); M25.78 Osteophyte, vertebrae
CPT/HCPCS: 74230; 92611

== ENCOUNTER 2025-07-30 06:30 | Outpatient (RCR) | payer MEDICARE, SELFPAY | END 2025-08-28 23:59 | disposition home or self-care (01) | LOC: GPT 06:30 | PROVIDERS: PCP Family Medicine; Visit Provider Preventive Medicine Aerospace Medicine | DX: M54.16 Radiculopathy, lumbar region (principal) | CPT/HCPCS: 97162 ==

== ENCOUNTER 2025-08-07 14:13 | Outpatient (CLI) | payer MEDICARE, SELFPAY | END 2025-08-07 14:14 | disposition home or self-care (01) | LOC: SLEEP 14:14 | PROVIDERS: PCP Family Medicine; Referring Provider Family Medicine; Visit Provider Family Medicine | DX: G47.33 Obstructive sleep apnea (adult) (pediatric) (principal) | CPT/HCPCS: G0399 ==

== ENCOUNTER 2025-09-04 06:57 | Outpatient (RCR) | payer MEDICARE, SELFPAY | END 2025-09-11 12:25 | disposition home or self-care (01) | LOC: GPT 06:57 | PROVIDERS: PCP Family Medicine; Visit Provider Preventive Medicine Aerospace Medicine | DX: M54.16 Radiculopathy, lumbar region (principal) | CPT/HCPCS: 97110; 97112; 97140 ==

== ENCOUNTER → 2025-10-16 08:09 | Outpatient (BNVA) | payer MEDICARE, SELFPAY | PROVIDERS: PCP Family Medicine; Visit Provider Family Medicine | DX: E11.69 Type 2 diabetes mellitus with other specified complication (principal); E66.9 Obesity, unspecified; I10 Essential (primary) hypertension; Z79.2 Long term (current) use of antibiotics | CPT/HCPCS: 80053; 80061; 83036; 85025; 86140 ==

== ENCOUNTER 2025-11-16 06:48 | Outpatient (CLI) | payer MEDICARE, SELFPAY ==
--- NOTE | 2025-11-16 07:15 | MR_ITS ---
WS: [id number] MRI LUMBAR SPINE NONCONTRAST TECHNIQUE: Sagittal T1, T2 and STIR imaging. Axial T1 and T2 imaging. CLINICAL INFORMATION: lumbar stenosis COMPARISON: None. FINDINGS: Mild lumbar curve. No acute compression. Pedicle screw fixation L4-5 with interbody fusion graft. Disc bulging worse at L1-L2, L2-L3, and L3-L4. Incidental Tarlov cyst in the sacrum. L1-L2: Slight retrolisthesis. Mild disc bulging with moderate central canal stenosis. Impingement subarticular recess bilaterally. Moderate facet arthropathy. Mild to moderate bilateral bony foraminal narrowing. L2-L3: Central disc bulging with moderate central canal stenosis and impingement of the subarticular recess bilaterally. Moderate facet arthropathy. Moderate RIGHT greater than LEFT bony foraminal narrowing. L3-L4: Central disc bulging with severe central canal stenosis. Moderate facet arthropathy. Moderate bilateral bony foraminal narrowing. L4-L5: Interbody fusion graft. Pedicle screw fixation. Mild narrowing of the subarticular recess bilaterally. Mild bilateral bony foraminal narrowing. L5-S1: RIGHT paracentral protrusion impinges the traversing RIGHT S1 nerve root in the subarticular recess. RIGHT hemilaminectomy. Moderate facet arthropathy. Moderate to severe RIGHT and moderate LEFT bony foraminal narrowing. Visualized pelvic bony structures: Normal. Paravertebral soft tissues: Normal. MR/MR lumbar spine wo con* [id number] IMPRESSION: 1. Moderate central canal stenosis L1-2, moderate to severe L2-3 and severe L3 -4 due to disc bulging with facet arthropathy and ligamentum flavum hypertrophy . Redundancy of the cauda equina nerve rootlets. 2. Slight retrolisthesis L2 on L3 and L3 on L4. 3. Pedicle screw fixation L4-5 with interbody fusion graft. Spinal canal is pa tent at L4-5. 4. RIGHT paracentral protrusion L5-S1 impinges the traversing RIGHT S1 nerve r oot in the subarticular recess. RIGHT hemilaminectomy defect. 5. Multilevel bony foraminal narrowing worse at L5-S1 with moderate to severe RIGHT and moderate LEFT bony foraminal narrowing.
== END 2025-11-16 06:49 | disposition home or self-care (01) ==
PROVIDERS: PCP Family Medicine; Visit Provider Family Medicine
DX: M96.1 Postlaminectomy syndrome, not elsewhere classified (principal); M48.061 Spinal stenosis, lumbar region without neurogenic claudication; M47.816 Spondylosis without myelopathy or radiculopathy, lumbar region; M47.817 Spondylosis without myelopathy or radiculopathy, lumbosacral region; M51.369 Other intervertebral disc degeneration, lumbar region without mention of lumbar back pain or lower extremity pain; M51.27 Other intervertebral disc displacement, lumbosacral region
CPT/HCPCS: 72148